=== PATIENT | male | born 1995 ===

== ENCOUNTER 2017-12-11 23:50 | Emergency (ER) | payer SELFPAY ==
[2017-12-11 23:58] VITALS: BMI 18.4
[2017-12-12 00:09] VITALS: TEMP 98
[2017-12-12] MEDS ORDERED: Sodium Chloride 0.9% 1,000 ML IV STA (00:13)
--- NOTE | 2017-12-12 00:17 | ED PDOC ---
Arrival/HPI - General Chief Complaint: Abdominal Pain Time Seen by Provider: 12/12/17 00:00 Historian: Patient - History of Present Illness Narrative History of Present Illness (Text): 12/12/17 00:16 22 yo M complains of intermittent non-radiating epigastric abdominal pain x 3 weeks, which started again tonight after he drank a 32 oz beer, associated with nausea. Otherwise: (-) vomiting, (-) diarrhea, (-) fever, (-) CP, (-) SOB, (-) back pain, (-) melena, (-) urinary symptoms, (-) hematochezia. Has no history of prior abdominal surgery. Past Medical History - Infectious Disease Hx of Infectious Diseases: None Family/Social History Family/Social History: No Known Family HX Allergies/Home Meds Allergies/Adverse Reactions: Allergies No Known Allergies Allergy (Verified 12/11/17 23:58) Review of Systems - Review of Systems Constitutional: absent: Fatigue, Fevers Cardiovascular: absent: Chest Pain, Palpitations Gastrointestinal: Abdominal Pain, Nausea. absent: Diarrhea, Vomiting Genitourinary Male: absent: Dysuria, Frequency, Hematuria Musculoskeletal: absent: Arthralgias, Back Pain, Neck Pain Skin: absent: Rash, Pruritis, Skin Lesions Neurological: absent: Headache, Dizziness Physical Exam Vital Signs Temp Pulse Resp BP Pulse Ox 12/12/17 00:05 98 F 83 18 127/73 98 Temperature: Afebrile Blood Pressure: Normal Pulse: Regular Respiratory Rate: Normal Appearance: Positive for: Well-Appearing, Non-Toxic, Comfortable Pain Distress: None Mental Status: Positive for: Alert and Oriented X 3 - Systems Exam Head: Present: Atraumatic, Normocephalic Pupils: Present: PERRL Extroacular Muscles: Present: EOMI Conjunctiva: Present: Normal Mouth: Present: Moist Mucous Membranes Neck: Present: Normal Range of Motion Respiratory/Chest: Present: Clear to Auscultation, Good Air Exchange. No: Respiratory Distress, Accessory Muscle Use Cardiovascular: Present: Regular Rate and Rhythm, Normal S1, S2. No: Murmurs Abdomen: Present: Tenderness (+mild epigastric tenderness), Other (negative ventura's sign). No: Distention, Peritoneal Signs, Rebound, Guarding, McBurney's Point Tender, Rovsing's Sign Present Back: Present: Normal Inspection. No: CVA Tenderness, Midline Tenderness Upper Extremity: Present: Normal Inspection. No: Cyanosis, Edema Lower Extremity: Present: Normal Inspection. No: Edema Neurological: Present: GCS=15, CN II-XII Intact, Speech Normal Skin: Present: Warm, Dry, Normal Color. No: Rashes Psychiatric: Present: Alert, Oriented x 3, Normal Insight, Normal Concentration Medical Decision Making ED Course and Treatment: 12/12/17 00:14 Plan: -- Labs -- IV fluids -- Pepcid / Zofran -- Reassess and disposition On reevaluation, patient reports improvement of symptoms, denies any abdominal pain, nausea or vomiting. On exam, patient remains awake alert and oriented 3 in no acute distress. Abdomen soft and nontender, repeat neuro exam shows no focal findings. Labs reviewed and wnl. Diagnostic results d/w the patient. Dx of gastritis d/w the patient. Advised to follow up with primary care physician or the clinic in 1-2 days without fail. Advised to take medication as prescribed. Return to the emergency room at any time for any new or worsening symptoms. Patient states he fully agrees with and understands discharge instructions. States that he agrees with the plan and disposition. Verbalized and repeated discharge instructions and plan. I have given the patient opportunity to ask any additional questions. - PA / NON DESTRUCTIVE EVALUATION MANAGER / Resident Statement MD/DO has reviewed & agrees with the documentation as recorded. Disposition/Present on Arrival - Present on Arrival Any Indicators Present on Arrival: No History of DVT/PE: No History of Uncontrolled Diabetes: No Urinary Catheter: No History of Decub. Ulcer: No History Surgical Site Infection Following: None - Disposition Have Diagnosis and Disposition been Completed?: Yes Diagnosis: Abdominal pain, Gastritis Disposition: HOME/ ROUTINE Disposition Time: 01:15 Patient Plan: Discharge Patient Problems: Current Active Problems Problem Status Onset Abdominal pain Acute Gastritis Acute Condition: STABLE Discharge Instructions (ExitCare): Gastritis, Acute Abdomen (Belly Pain), Adult (DC) Additional Instructions: Thank you for letting us take care of you today. You were treated for abdominal pain, gastritis. The emergency medical care you received today was directed at your acute symptoms. If you were prescribed any medication, please fill it and take as directed. It may take several days for your symptoms to resolve. Return to the Emergency Department if your symptoms worsen, do not improve, or if you have any other problems. Please contact your doctor in 2 days for re-evaluation and follow up / or call one of the physicians/clinics you have been referred to that are listed on the Patient Visit Information form that is included in your discharge packet. Bring any paperwork you were given at discharge with you along with any medications you are taking to your follow up visit. Our treatment cannot replace ongoing medical care by a primary care provider (PCP) outside of the emergency department. Thank you for allowing the [facility] team to be part of your care today. Prescriptions: Esomeprazole Magnesium [Nexium] 40 mg PO DAILY #30 cap Referrals: [facility] at [facility] [place], [place] [Outside] - Follow up with primary Forms: [employer] (Hebrew), WORK NOTE
[2017-12-12 00:32] LABS: ALB/GLOB RATIO 1.2 (1.1-1.8); ALBUMIN 4.4 g/dL (3.0-4.8); ALT/SGPT 32 U/L (7-56); AST/SGOT 35 U/L (17-59); BLOOD UREA NITROGEN 17 mg/dL (7-21); CALCIUM 9.1 mg/dL (8.4-10.5); GFR NON-AFRICAN AMERICAN > 60; LIPASE 62 U/L (23-300)
[2017-12-12 00:36] LABS: BASO # 0.04 K/mm3 (0.0-2.0); BASO % 0.4 % (0.0-3.0); EOS # 0.1 (0.0-0.7); EOS % 0.9 % (1.5-5.0); GRAN # 7.36 (1.4-6.5); GRAN % 74.2 % (50.0-68.0); HEMOGLOBIN 14.3 g/dL (14.0-18.0); LYMPH % 20.4 % (22.0-35.0); MEAN CORPUSCULAR HEMOGLOBIN 27.4 pg (25.0-35.0); MEAN CORPUSCULAR HGB CONC 33.5 g/dl (31.0-37.0); MEAN PLATELET VOLUME 9.9 fl (7.0-11.0); MONO # 0.4 (0.1-0.6); MONO % 4.1 % (1.0-6.0); RBC 5.21 10^6/uL (3.5-6.1); RED CELL DISTRIBUTION WIDTH 13.6 % (11.5-14.5); WHITE BLOOD COUNT 9.9 10^3/uL (4.5-11.0)
[2017-12-12 00:41] LABS: INR 1.2; PARTIAL THROMBOPLASTIN TIME 30.1 Seconds (25.1-36.5); PROTHROMBIN TIME 13.7 SECONDS (9.4-12.5)
[2017-12-12 01:31] VITALS: BP 122/67; PULSE 75; RESP 17; O2SAT 99
== END 2017-12-12 01:25 | disposition home or self-care (01) ==
LOC: ED 23:50
DX: K29.70 Gastritis, unspecified, without bleeding (principal); R10.13 Epigastric pain
CPT/HCPCS: 80053; 83690; 83735; 85025; 85610; 85730; 96361; 96374; 96375; 99283; J2405; J7030

== ENCOUNTER 2017-12-12 21:17 | Emergency (ER) | payer SELFPAY ==
[2017-12-12 21:17] VITALS: BMI 18.4
[2017-12-12 22:57] VITALS: BP 129/76; PULSE 78; RESP 17; TEMP 98.1; O2SAT 99
--- NOTE | 2017-12-12 23:23 | ED PDOC ---
Arrival/HPI - General Historian: Patient - History of Present Illness Narrative History of Present Illness (Text): 12/12/17 23:19 22 y/o male, pmh including gastritis, nkda, here at the ER today because he was seen here and diagnosed with gastritis as they gave him nexium prescription but he didn't feel it. He was drinking early during the day, started to have pain again, no night sweat, had extensive lab work perform with the previous provider with non significant cbc/CMP/lipase, stated that the pain feels the same as last night and for the past 3 weeks, no chest pain or shortness of breath, no homicidal or suicidal ideation, no auditory or visual hallucination. <Gray Abad - Last Filed: 12/13/17 00:04> <Mike Marcos - Last Filed: 12/13/17 19:48> - General Chief Complaint: Abdominal Pain Time Seen by Provider: 12/12/17 23:16 Past Medical History - Provider Review Nursing Documentation Reviewed: Yes - Infectious Disease Hx of Infectious Diseases: None - Psychiatric Hx Substance Use: No - Anesthesia Hx Anesthesia: No <Gray Abad - Last Filed: 12/13/17 00:04> Family/Social History - Physician Review Nursing Documentation Reviewed: Yes Family/Social History: Unknown Family HX Smoking Status: Light Smoker < 10 Cigarettes Daily Hx Alcohol Use: Yes Hx Substance Use: No <Gray Abad - Last Filed: 12/13/17 00:04> Allergies/Home Meds <Gray Abad - Last Filed: 12/13/17 00:04> <Mike Marcos - Last Filed: 12/13/17 19:48> Allergies/Adverse Reactions: Allergies No Known Allergies Allergy (Verified 12/11/17 23:58) Home Medications: Home Meds Medication Instructions Recorded Confirmed RX: No Known Home Med 12/12/17 12/12/17 Review of Systems - Review of Systems Constitutional: absent: Fatigue, Fevers Eyes: absent: Vision Changes ENT: absent: Hearing Changes Respiratory: absent: SOB, Cough Cardiovascular: absent: Chest Pain Gastrointestinal: Abdominal Pain. absent: Diarrhea, Nausea, Vomiting Musculoskeletal: absent: Arthralgias, Back Pain Skin: absent: Rash, Pruritis Neurological: absent: Headache, Dizziness Psychiatric: absent: Anxiety, Depression, Suicidal Ideation <Gray Abad - Last Filed: 12/13/17 00:04> Physical Exam Vital Signs Reviewed: Yes Vital Signs Temp Pulse Resp BP Pulse Ox 12/12/17 22:54 98.1 F 78 17 129/76 99 Temperature: Afebrile Blood Pressure: Normal Pulse: Regular Respiratory Rate: Normal Appearance: Positive for: Well-Appearing, Non-Toxic, Comfortable Pain Distress: Moderate Mental Status: Positive for: Alert and Oriented X 3 - Systems Exam Head: Present: Atraumatic, Normocephalic Pupils: Present: PERRL Extroacular Muscles: Present: EOMI Conjunctiva: Present: Normal Mouth: Present: Moist Mucous Membranes Neck: Present: Normal Range of Motion Respiratory/Chest: Present: Clear to Auscultation, Good Air Exchange. No: Respiratory Distress, Accessory Muscle Use Cardiovascular: Present: Regular Rate and Rhythm, Normal S1, S2. No: Murmurs Abdomen: Present: Tenderness (mild epigastric tenderness. ). No: Distention, Peritoneal Signs, Rebound, Guarding, McBurney's Point Tender, Rovsing's Sign Present, Hernias, Scars Back: Present: Normal Inspection. No: CVA Tenderness, Midline Tenderness, Paraspinal Tenderness Upper Extremity: Present: Normal Inspection. No: Cyanosis, Edema Lower Extremity: Present: Normal Inspection. No: Edema Neurological: Present: GCS=15, CN II-XII Intact, Speech Normal, Motor Func Grossly Intact, Gait Normal, Memory Normal Skin: Present: Warm, Dry, Normal Color. No: Rashes Psychiatric: Present: Alert, Oriented x 3, Normal Insight, Normal Concentration <Gray Abad - Last Filed: 12/13/17 00:04> Vital Signs Temp Pulse Resp BP Pulse Ox 12/12/17 22:54 98.1 F 78 17 129/76 99 <Mike Marcos - Last Filed: 12/13/17 19:48> Medical Decision Making ED Course and Treatment: 12/12/17 23:23 -Labs reviewed with normal CBC/CMP/Lipase less than 24 hours ago, refused repeat lab work -Gall bladder sonogram -Pepcid/zofran -Observe and reassess 12/13/17 00:04 -I was notified by the SHAFTING WORKER Aida and went to the bed side, the patient eloped from the ER and no test was perform. - RAD Interpretation Radiology Orders: 12/12/17 23:19 GALL BLADDER [US] Stat <Gray Abad - Last Filed: 12/13/17 00:04> - RAD Interpretation Radiology Orders: 12/12/17 23:19 GALL BLADDER [US] Stat - Medication Orders Current Medication Orders: Discontinued Medications Famotidine (Pepcid) 20 mg PO STAT STA Stop: 12/12/17 23:20 Last Admin: 12/13/17 00:04 Dose: 20 mg Ondansetron HCl (Zofran Odt) 4 mg PO STAT STA Stop: 12/12/17 23:20 Last Admin: 12/13/17 00:04 Dose: 4 mg <Mike Marcos - Last Filed: 12/13/17 19:48> - PA / COURT INTERPRETER / Resident Statement MYLENE has reviewed & agrees with the documentation as recorded. <Gray Abad - Last Filed: 12/13/17 00:04> - PA / COURT INTERPRETER / Resident Statement MYLENE has reviewed & agrees with the documentation as recorded. <Mike Marcos - Last Filed: 12/13/17 19:48> Disposition/Present on Arrival - Present on Arrival Any Indicators Present on Arrival: No History of DVT/PE: No History of Uncontrolled Diabetes: No Urinary Catheter: No History of Decub. Ulcer: No History Surgical Site Infection Following: None - Disposition Have Diagnosis and Disposition been Completed?: Yes Disposition Time: 00:05 <Gray Abad - Last Filed: 12/13/17 00:04> <Mike Marcos - Last Filed: 12/13/17 19:48> - Disposition Diagnosis: Noncompliance, Abdominal pain Disposition: ELOPEMENT - ER ONLY Condition: GOOD Forms: [facility] (Malawian)
== END 2017-12-13 00:09 | disposition left against medical advice (07) ==
LOC: ED 21:17
DX: R10.9 Unspecified abdominal pain (principal); F17.210 Nicotine dependence, cigarettes, uncomplicated